=== PATIENT | male | born 1980 | race Two or more races ===

== ENCOUNTER 2016-09-03 01:55 | Emergency (ER) | payer SELFPAY ==
[2016-09-03 02:01] VITALS: BP 130/99; PULSE 80; RESP 16; TEMP 98.1; O2SAT 96
--- NOTE | 2016-09-03 03:02 | EDPHY ---
H & P Stated Complaint: R second toe pain, unknown reason Time Seen by Provider: 09/03/16 02:53 HPI/ROS: CHIEF COMPLAINT: Toe pain HISTORY OF PRESENT ILLNESS: Patient is a 36-year-old otherwise healthy man who comes to the emergency department complaining pain at the MTP joint of his right 2nd toe. He states that it began tonight while he was walking with his . States that the pain is now severe he cannot sleep. Was sleeping when I entered the room however. He does not have any swelling or erythema. He denies history of any similar type pain. No history of gout. History of arthritis. REVIEW OF SYSTEMS: Constitutional: denies: chills, fever, recent illness, recent injury EENTM: denies: blurred vision, double vision, nose congestion Respiratory: denies: cough, shortness of breath Cardiac: denies: chest pain, irregular heart rate, lightheadedness, palpitations Gastrointestinal/Abdominal: denies: abdominal pain, diarrhea, nausea, vomiting, blood streaked stools Genitourinary: denies: dysuria, frequency, hematuria, pain Musculoskeletal: See HPI Skin: denies: lesions, rash, jaundice, bruising Neurological: denies: headache, numbness, paresthesia, tingling, dizziness, weakness Hematologic/Lymphatic: denies: blood clots, easy bleeding, easy bruising Immunologic/allergic: denies: HIV/AIDS, transplant EXAM: GENERAL: Well-appearing, well-nourished and in no acute distress. HEAD: Atraumatic, normocephalic. EYES: Pupils equal round and reactive to light, extraocular movements intact, sclera anicteric, conjunctiva are normal. ENT: TMs normal, nares patent, oropharynx clear without exudates. Moist mucous membranes. NECK: Normal range of motion, supple without lymphadenopathy or JVD. LUNGS: Breath sounds clear to auscultation bilaterally and equal. No wheezes rales or rhonchi. HEART: Regular rate and rhythm without murmurs, rubs or gallops. ABDOMEN: Soft, nontender, normoactive bowel sounds. No guarding, no rebound. No masses appreciated. BACK: No CVA tenderness, no spinal tenderness, step-offs or deformities EXTREMITIES: Pain and tenderness at right MCP, no erythema or swelling. No lacerations or cracking or signs of infection. NEUROLOGICAL: Cranial nerves II through XII grossly intact. Normal speech, normal gait. 5/5 strength, normal movement in all extremities, normal sensation PSYCH: Normal mood, normal affect. SKIN: Warm, dry, normal turgor, no visible rashes or lesions. Source: Patient Exam Limitations: No limitations - Personal History Current Tetanus/Diphtheria Vaccine: Yes Current Tetanus Diphtheria and Acellular Pertussis (TDAP): Yes - Medical/Surgical History Hx Asthma: No Hx Chronic Respiratory Disease: No Hx Diabetes: No Hx Cardiac Disease: No Hx Renal Disease: No Hx Cirrhosis: No Hx Alcoholism: No Hx HIV/AIDS: No Hx Splenectomy or Spleen Trauma: No Other PMH: denies - Family History Significant Family History: No pertinent family hx - Social History Smoking Status: Never smoked Alcohol Use: Sober Drug Use: None Constitutional: Initial Vital Signs Temperature (C) 36.7 C 09/03/16 01:58 Heart Rate 80 09/03/16 01:58 Respiratory Rate 16 09/03/16 01:58 Blood Pressure 130/99 H 09/03/16 01:58 O2 Sat (%) 96 09/03/16 01:58 O2 Delivery Mode Room Air Allergies/Adverse Reactions: No Known Allergies Allergy (Unverified 09/03/16 01:58) Home Medications: Medication Instructions Recorded Ibuprofen 800 mg PO TID #20 tablet 09/03/16 Medical Decision Making - Diagnostics Imaging Results: X-ray: Foot x-ray was obtained. I viewed the images myself on the PACS system. My interpretation of the images is: Small sesamoid bone fracture over 2nd MTP joint. The radiologist interpretation is pending. Procedures: Procedure: Splint placement. A [place] boot splint was applied. After application of the splint I returned and re-examined the patient. The splint was adequately immobilizing the joint and distal to the splint the patient's circulation and sensation was intact. ED Course/Re-evaluation: Patient was initially 5th a postop shoe but continued to have pain. He felt much better with the [place] boot. Will discharge him to follow up with Podiatry. He understands and agrees with this plan. He states that he has been walking slightly awkward since on his right foot because of a sprain to his knee he sustained in soccer. Differential Diagnosis: Partial list of the Differential diagnosis considered include but were not limited to; fracture, arthritis, tendonitis and although unlikely based on the history and physical exam, I also considered infection, gout, dislocation, vascular injury, tumor. I discussed these differential diagnoses and the plan with the patient as well as the usual and expected course. The patient understands that the diagnosis is provisional and that in medicine we are not always correct and that further workup is often warranted. Usual and customary warnings were given. All of the patient's questions were answered. The patient was instructed to return to the emergency department should the symptoms at all worsen or return, otherwise to followup with the physician as we discussed. - Data Points Medications Given: Discontinued Medications Hydrocodone Bitart/Acetaminophen ([place] 5/325mg Prepack#6) 1 btl TAKEHOME EDNOW ONE Stop: 09/03/16 03:46 Last Admin: 09/03/16 04:02 Dose: 1 btl Departure - Departure Disposition: Home, Routine, Self-Care Clinical Impression: Fracture of sesamoid bone Condition: Fair Instructions: Hydrocodone/Acetaminophen (By mouth), Foot Fracture in Adults (ED ) Referrals: Alma Peral[place] [facility] [place] - As per Instructions Prescriptions: Ibuprofen 800 mg PO TID #20 tablet
[2016-09-03] MEDS ORDERED: HYDROCOD/APAP 5/325 PREPACK#6 BTL TAKEHOME ONE (03:45)
== END 2016-09-03 04:04 | disposition home or self-care (01) ==
DX: M79.674 Pain in right toe(s) (principal)